=== PATIENT | female | born 1960 | race Caucasian/White ===

== ENCOUNTER 2020-10-22 09:35 | Outpatient (CLI) | payer OTHER | END 2020-10-22 09:51 | disposition home or self-care (01) | LOC: SONOGRAMA 09:35 | DX: N84.0 Polyp of corpus uteri (principal) ==

== ENCOUNTER 2024-12-29 09:24 | Outpatient (CLI) | payer OTHER | END 2024-12-29 09:37 | disposition home or self-care (01) | LOC: SONOGRAMA 09:24 | PROVIDERS: ATTEND Obstetrics & Gynecology Gynecology | DX: N84.0 Polyp of corpus uteri (principal) ==